=== PATIENT | female | born 1970 | race Caucasian/White ===

== ENCOUNTER 2024-03-20 08:37 | Emergency (ER) | payer BC, SELFPAY ==
--- NOTE | 2024-03-20 08:52 | ED.URI ---
HPI - URI/Sore Throat General Chief Complaint: Upper Respiratory Infection Stated Complaint: Sore Throat History of Present Illness HPI Narrative: 53 y/o female presented for c/o sore throat and cough, onset yesterday. States cough is productive of green sputum, and reports decreased appetite and subjective fever. Denies sob, wheezing, n/v/d. Took DayQuil and Nyquil. has similar symptoms. Related Data Home Medications Medication Instructions Recorded Confirmed semaglutide (weight loss) 1 mg/0.5 1 mg subcut DIRECTED 03/20/24 03/20/24 mL subcutaneous pen injector (Wegovy) Allergies Allergy/AdvReac Type Severity Reaction Status Date / Time No Known Allergies Allergy Verified 03/20/24 08:45 Review of Systems Review of Systems: CONSTITUTIONAL: Denies body aches reports fever EYES: Denies visual changes, redness, or discharge. ENT: Reports sore throat Denies rhinorrhea, congestion, or otalgia. CARDIOVASCULAR: Denies chest pain, palpitations, or edema. RESPIRATORY: reports cough Denies dyspnea. GASTROINTESTINAL: Denies abdominal pain, nausea, vomiting, or diarrhea. SKIN: Denies rash, itching, or wounds. MUSCULOSKELETAL: Denies back pain, joint pain, or myalgia. NEUROLOGIC: Denies headache Exam Narrative: GENERAL: mildly Ill-appearing, no acute distress. EYES: conjunctivae clear ENT: Mucous membranes moist. TM pearly mcguire with normal light reflex bilaterally; no tragal tenderness. Oropharynx not erythematous without lesions. Tonsils not enlarged and without exudate. No drooling, no hoarseness, no trismus, uvula midline. No tripod positioning, hot potato voice, or soft palate swelling. NECK: Supple. No lymphadenopathy CHEST: Clear to auscultation, breath sounds equal. No respiratory distress, speaks in full sentences. HEART: Regular rate and rhythm. No murmur heard. SKIN: Warm, dry, no rash. NEURO: Alert and oriented x3. Course Course Emergency Course: Patient is aware of diagnosis, understands and agrees to treatment plan. Anticipatory guidance given. Patient agrees to follow-up as directed and is aware of reasons to seek care at the emergency department. Portions of this record may have been created with voice recognition software Level of Care: Express Care Visit Vital Signs Vital signs: Vital Signs Temperature 99.6 F 03/20/24 08:56 Pulse Rate 110 H 03/20/24 08:56 Respiratory Rate 16 03/20/24 08:56 Blood Pressure 122/59 L 03/20/24 08:56 Pulse Oximetry 98 03/20/24 08:56 Oxygen Delivery Room Air 03/20/24 08:56 Temperature 99.6 F 03/20/24 08:56 Pulse Rate 110 H 03/20/24 08:56 Respiratory Rate 16 03/20/24 08:56 Blood Pressure 122/59 L 03/20/24 08:56 Pulse Oximetry 98 03/20/24 08:56 Oxygen Delivery Room Air 03/20/24 08:56 MDM - URI/Sore Throat MDM Narrative Medical decision making narrative: negative flu, COVID, strep result reviewed with pt. Advise supportive treatments. Patient is appropriate for outpatient treatment and follow-up. Differential Diagnosis Differential diagnosis: Likely upper respiratory infection, viral infection and pharyngitis Lab Data Labs: Influenza A Screen Negative Reference Range: Negative Influenza B Screen Negative Reference Range: Negative Strep Screen Presumptive Negative *(Reference Range: Negative)* Discharge Plan Discharge Clinical Impression: Viral infection Patient Disposition: Home, Self-Care Condition: Stable Instructions: Antibiotic Form Additional Instructions: flu and covid negative Rapid strep swab was negative today You will be notified in a few days if the culture comes back positive for strep, and appropriate antibiotics will be called in at that time. if symptoms are due to a asad
[2024-03-20 08:56] VITALS: BP 122/59; PULSE 110; RESP 16; TEMP 37.6; O2SAT 98
== END 2024-03-20 09:35 | disposition home or self-care (01) ==
PROVIDERS: Emergency Provider Nurse Practitioner Family
DX: B34.9 Viral infection, unspecified (principal); Z20.822 Contact with and (suspected) exposure to COVID-19
CPT/HCPCS: 87081; 87426; 87804; 87880; 99213; G0463